=== PATIENT | female | born 1955 | race Caucasian/White ===

== ENCOUNTER 2017-04-29 22:52 | Emergency (ER) | payer OTHER ==
[~2017-04-29] VITALS: Ht 162.6 cm; Wt 63.5 kg
[2017-04-29 22:52] VITALS: BP 119/88
[2017-04-29] MEDS ORDERED: ERYT1OIN6 OP (23:32)
[2017-04-29] MEDS ORDERED: GENT5DRO3 EACHEYE (23:40)
--- NOTE | 2017-04-29 23:43 | PHYS DOC ---
Past History Past Medical History: Other Past Surgical History: Other Smoking: Non-smoker Alcohol Use: None Drug Use: None Adult General Chief Complaint Chief Complaint: eye problems [facility] HPI Patient is a 62 year old F who presents with eye problems. Yelena has had right lower eyelid discomfort over the past 2 days. She noticed a pimple-like lesion on the edge of her eyelid as well as on the inner lower eyelid associated with mild to moderate drainage particularly tonight. She feels that warm compresses have had some improvement in her symptoms. She has no exacerbating factors that she knows of. No other associated symptoms. Review of Systems Review of Systems Constitutional: Denies fever or chills [] Eyes: Denies change in visual acuity, redness, or eye pain [] HENT: Denies nasal congestion or sore throat [] Respiratory: Denies cough or shortness of breath [] Cardiovascular: No additional information not addressed in HPI [] GI: Denies abdominal pain, nausea, vomiting, bloody stools or diarrhea [] : Denies dysuria or hematuria [] Musculoskeletal: Denies back pain or joint pain [] Integument: Denies rash or skin lesions [] Neurologic: Denies headache, focal weakness or sensory changes [] Endocrine: Denies polyuria or polydipsia [] Family History Family History Noncontributory Current Medications Current Medications Medications reviewed Allergies Allergies Allergies Coded Allergies Type Severity Reaction Last Updated Verified bee venom (honey bee) Allergy Severe 11/25/13 Yes Amoxicillin Allergy Unknown Unknown 11/25/13 Yes Sulfa (Sulfonamide Antibiotics) Allergy Unknown Unknown 11/25/13 Yes Physical Exam Physical Exam Constitutional: Well developed, well nourished, no acute distress, non-toxic appearance. [] HENT: Normocephalic, atraumatic, bilateral external ears normal, oropharynx moist, no oral exudates, nose normal. [] Eyes: PERRLA, EOMI, conjunctiva normal, right lower eyelid stye without drainage Neck: Normal range of motion, no tenderness, supple, no stridor. [] Cardiovascular:Heart rate regular rhythm, no murmur [] Lungs & Thorax: Bilateral breath sounds clear to auscultation [] Abdomen: Bowel sounds normal, soft, no tenderness, no masses, no pulsatile masses. [] Skin: Warm, dry, no erythema, no rash. [] Back: No tenderness, no CVA tenderness. [] Extremities: No tenderness, no cyanosis, no clubbing, ROM intact, no edema. [] Neurologic: Alert and oriented X 3, normal motor function, normal sensory function, no focal deficits noted. [] Psychologic: Affect normal, judgement normal, mood normal. [] Current Patient Data Vital Signs Normal vital signs. Please refer to nursing documentation for specifics. Course & Med Decision Making Course & Med Decision Making Pertinent Labs and Imaging studies reviewed. (See chart for details) Dragon Disclaimer Dragon Disclaimer This chart was dictated in whole or in part using Voice Recognition software in a busy, high-work load, and often noisy Emergency Department environment. It may contain unintended and wholly unrecognized errors or omissions. Departure Departure: Impression: Primary Impression: Sty, external Additional Impression: Sty, internal Disposition: 01 HOME, SELF-CARE Condition: STABLE Referrals: SHARYN PERALTA MD (PCP) Patient Instructions: Sty Additional Instructions: Yelena was seen in the emergency department for eye problems. No emergency medical condition was found on history or physical exam. Her symptoms are most consistent with sty. She was given antibiotic eyedrops. 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 Scripts Gentamicin Sulfate (GENTAMICIN SULFATE) 5 Ml Drops 1 DROP EACHEYE QID, #5 ML Prov: JERRY NASSAR MD 04/29/17 Erythromycin Base (Erythromycin) 1 Gm Oint...g. 1 GM OP Q8HRS for 5 Days, MISC Prov: JERRY NASSAR MD 04/29/17 Problem Qualifiers Primary Impression: Sty, external Laterality: right Eyelid: lower Qualified Codes: H00.012 - Hordeolum externum right lower eyelid Additional Impression: Sty, internal Laterality: right Eyelid: lower Qualified Codes: H00.022 - Hordeolum internum right lower eyelid JERRY NASSAR MD Apr 29, 2017 23:43
== END 2017-04-29 23:48 | disposition home or self-care (01) ==
LOC: ER 22:52
DX: H00.011 Hordeolum externum right upper eyelid (principal); H00.022 Hordeolum internum right lower eyelid; Z88.2 Allergy status to sulfonamides; Z88.1 Allergy status to other antibiotic agents; Z91.030 Bee allergy status
CPT/HCPCS: 99283

== ENCOUNTER 2018-08-06 10:26 | Emergency (ER) | payer OTHER ==
[~2018-08-06] VITALS: Ht 162.6 cm; Wt 59.0 kg
[~2018-08-06 10:26] MED LIST: ERYT1OIN6 OP; GENT5DRO3 EACHEYE
[2018-08-06 11:00] VITALS: BP 107/70
[2018-08-06 11:27] LABS: INFLUENZA A PATIENT NEGATIVE (NEGATIVE); INFLUENZA B PATIENT NEGATIVE (NEGATIVE)
--- NOTE | 2018-08-06 13:56 | ED.ADGEN ---
Past History Past Medical History: No Pertinent History Past Surgical History: , Other Smoking: Non-smoker Alcohol Use: None Drug Use: None Adult General Chief Complaint Chief Complaint Fever, body aches HPI HPI Patient is a 63-year-old female who presents with daily fever the past 2 days, body aches, nasal congestion, sore throat and occasional cough. Patient also had episode of nausea with emesis this morning which since resolved. Reports mild headache, no neck pain or stiffness. patient is been taking ibuprofen every 4-6 hours with some improvement of symptoms.No cough, shortness of breath. No abnormal pain, urinary frequency urgency or diarrhea. No other acute symptoms or complaints. Patient denies chronic medical illness and does not take any daily medications. She is accompanied at bedside by her spouse. [] Review of Systems Review of Systems Review symptoms as per history of present illness. All other review symptoms are negative. All other systems were reviewed and found to be within normal limits, except as documented in this note. Allergies Allergies Allergies Coded Allergies Type Severity Reaction Last Updated Verified bee venom (honey bee) Allergy Severe 11/25/13 Yes Amoxicillin Allergy Unknown Unknown 11/25/13 Yes Sulfa (Sulfonamide Antibiotics) Allergy Unknown Unknown 11/25/13 Yes Physical Exam Physical Exam Constitutional: Well developed, well nourished, no acute distress, non-toxic appearance. [] HENT: Normocephalic, atraumatic, bilateral external ears normal, oropharynx moist, nose normal. [] Eyes: PERRLA, EOMI, conjunctiva normal, no discharge. [] Neck: Normal range of motion, no tenderness. [] Cardiovascular:Heart rate regular rhythm, no murmur. [] Lungs & Thorax: Bilateral breath sounds clear to auscultation. [] Abdomen: Bowel sounds normal, soft, no tenderness. [] Skin: Warm, dry, no rash. [] Back: No tenderness, no CVA tenderness. [] Extremities: No tenderness, no cyanosis, no clubbing, ROM intact, no edema. [] Neurologic: Alert and oriented X 3, normal motor function, normal sensory function, no focal deficits noted. [] Psychologic: Affect normal, judgement normal, mood normal. [] Current Patient Data Vital Signs Vital Signs Date Time Temp Pulse Resp B/P (MAP) Pulse Ox O2 Delivery O2 Flow Rate FiO2 08/06/18 11:00 99.0 94 12 107/70 (82) Room Air 08/06/18 10:34 94 Lab Results Laboratory Tests Test 08/06/18 10:55 Influenza Type A (Rapid) Negative (NEGATIVE) Influenza Type B (Rapid) Negative (NEGATIVE) EKG EKG [] Radiology/Procedures Radiology/Procedures [] Course & Med Decision Making Course & Med Decision Making Pertinent Labs and Imaging studies reviewed. (See chart for details) [Flulike illness. Vital signs stable. lungs sounds are clear.Recommend supportive care, watchful waiting and close PCP follow-up. Return precautions reviewed.,] Final Impression Final Impression [#1 viral syndrome] Dragon Disclaimer Dragon Disclaimer This electronic medical record was generated, in whole or in part, using a voice recognition dictation system. DRU MILLER DO Aug 06, 2018 13:56
== END 2018-08-06 11:00 | disposition home or self-care (01) ==
LOC: ER 10:26
DX: B34.9 Viral infection, unspecified (principal); R11.2 Nausea with vomiting, unspecified; R51 Headache; Z88.2 Allergy status to sulfonamides; Z88.1 Allergy status to other antibiotic agents; Z91.030 Bee allergy status
CPT/HCPCS: 87804; 99283